=== PATIENT | male | born 1960 | race Two or more races ===

== ENCOUNTER 2021-06-27 14:18 | Emergency (ER) | payer OTHER ==
[~2021-06-27] VITALS: Ht 180.3 cm; Wt 93.9 kg
[2021-06-27] MEDS ORDERED: KETO10TA2 PO (19:24)
== END 2021-06-27 19:44 | disposition home or self-care (01) ==
LOC: ER 14:18
DX: S43.004A Unspecified dislocation of right shoulder joint, initial encounter (principal); W19.XXXA Unspecified fall, initial encounter; Y92.89 Other specified places as the place of occurrence of the external cause